=== PATIENT | male | born 1980 | race Caucasian/White ===

== ENCOUNTER 2017-10-17 19:16 | Emergency (ER) | payer SELFPAY, OTHER ==
[2017-10-17] MEDS ORDERED: Lorazepam 2 MG/ML VIAL ONE (20:20)
== END 2017-10-17 20:53 | disposition home or self-care (01) ==
LOC: ERS 19:16
DX: F41.9 Anxiety disorder, unspecified (principal); F32.9 Major depressive disorder, single episode, unspecified; F17.210 Nicotine dependence, cigarettes, uncomplicated; Z71.6 Tobacco abuse counseling
CPT/HCPCS: 96374; J2060